=== PATIENT | male | born 1950 | race Caucasian/White ===

== ENCOUNTER 2019-12-28 12:31 | Inpatient (IN) | payer MEDICARE, OTHER ==
[~2019-12-28] VITALS: Ht 182.9 cm; Wt 84.4 kg
--- NOTE | 2019-12-28 12:31 | NUR ---
PT [id number] FROM HOME C/O CHEST PRESSURE, DIZZINESS SINCE YESTERDAY, PT IS AAOX4, NOT IN RESPIRATORY DISTRESS, HOOKED TO EXPERT WITNESS, KEPT RESTED AND COMFORTABLE, WILL CONTINUE TO MONITOR.
--- NOTE | 2019-12-28 12:35 | NUR ---
SEEN AND EXAMINED BY .
--- NOTE | 2019-12-28 12:40 | NUR ---
PT IV LINE ESTABLISHED, BLOOD DRAWN AND SENT TO LAB.
[2019-12-28] MEDS ORDERED: DILTIAZEM HCL 50 MG IV ONE (12:44)
--- NOTE | 2019-12-28 12:54 | NUR ---
TOUR NARRATOR AT BEDSIDE FOR XRAY.
[2019-12-28 12:59] LABS: CALCIUM, SERUM 8.8 mg/dL (8.5-10.1); CARBON DIOXIDE 19 mmol/L (21-32); CHLORIDE 103 mmol/L (98-107); CREATININE 2.2 mg/dL (0.6-1.3); GLUCOSE 147 mg/dL (74-106); POTASSIUM 4.5 mmol/L (3.5-5.1); SODIUM SERUM 134 mmol/L (136-145); UREA NITROGEN, BLOOD 20 mg/dL (7-18)
[2019-12-28] MEDS ORDERED: DILTIAZEM HCL IV 125 MG in IV D5W 100 ML IV ONE (13:00)
[2019-12-28] MEDS ORDERED: DILTIAZEM HCL 25 MG IV IVP ONE (13:00)
[2019-12-28] MEDS ORDERED: LEVO50TA8 PO (13:03)
[2019-12-28] MEDS ORDERED: ASPI-605 PO (13:03)
[2019-12-28 13:07] LABS: BASOPHILS # (AUTO) 0.1 /CMM (0.0-0.2); BASOPHILS % (AUTO) 1.1 % (0.0-2.0); EOSINOPHILS % (AUTO) 2.6 % (0.0-6.0); HEMATOCRIT 45 % (39-51); HEMOGLOBIN 14.8 g/dL (13.5-17.5); LYMPHOCYTES # (AUTO) 0.7 /CMM (0.8-4.8); LYMPHOCYTES % (AUTO) 15.3 % (20.0-44.0); MEAN CORPUSCULAR HGB CONC 33 g/dl (31.0-36.0); MEAN CORPUSCULAR VOLUME 81 fL (80-96); MONOCYTES # (AUTO) 0.6 /CMM (0.1-1.30); MONOCYTES % (AUTO) 13.5 % (2.0-12.0); NEUTROPHILS # (AUTO) 3.2 /CMM (1.8-8.9); NEUTROPHILS % (AUTO) 67.5 % (43.0-81.0); PLATELET COUNT (AUTO) 205 /CMM (150-450); RED BLOOD CELL COUNT(AUTO) 5.52 MIL/uL (4.5-6.0); WHITE BLOOD COUNT (AUTO) 4.7 K/uL (4.3-11.0)
[2019-12-28] MEDS ORDERED: ATOR40TA PO (13:08)
[2019-12-28] MEDS ORDERED: GLIP2.5T3 PO (13:08)
[2019-12-28] MEDS ORDERED: METO25TA3 PO (13:08)
[2019-12-28] MEDS ORDERED: OMEP40CA13 PO (13:08)
[2019-12-28 13:12] LABS: B-TYPE NATRIURETIC PEPTIDE 77 PG/ML (0-125)
--- NOTE | 2019-12-28 13:57 | NUR ---
PT ADMITTED TO [facility] BED 321-1.
[2019-12-28] MEDS ORDERED: ACETAMINOPHEN 325 MG TABLET PO PRN (14:00)
[2019-12-28] MEDS ORDERED: INSULIN REGULAR, HUMAN 100 UNIT/ML 3 ML VIAL SQ PRN (14:00)
[2019-12-28] MEDS ORDERED: MAG HYDROX/AL HYDROX/SIMETH 30 ML UDC PO PRN (14:00)
[2019-12-28] MEDS ORDERED: NITROGLYCERIN 0.4 MG/TAB BOTTLE SL PRN (14:00)
[2019-12-28] MEDS ORDERED: DEXTROSE 50%-WATER 50 ML DISP.SYRIN IV PRN (14:00)
[2019-12-28] MEDS ORDERED: MORPHINE SULFATE INJ 2 MG/ML DISP.SYRIN IV PRN (14:00)
[2019-12-28] MEDS ORDERED: DOCUSATE SODIUM 100 MG CAPSULE PO PRN (14:00)
[2019-12-28] MEDS ORDERED: ASPIRIN 81 MG TAB.CHEW PO ONE (14:00)
[2019-12-28] MEDS ORDERED: ONDANSETRON HCL/PF 4 MG/2 ML VIAL IVP PRN (14:00)
[2019-12-28] MEDS ORDERED: CLOB60CR32 (14:03)
[2019-12-28] MEDS ORDERED: ONDA4TAB8 PO (14:03)
--- NOTE | 2019-12-28 14:15 | NUR ---
REPORT GIVEN TO BJ WANG.
--- NOTE | 2019-12-28 14:18 | NUR ---
SON CELESTINO MCCALLUM LEFT # [phone]
[2019-12-28] MEDS ORDERED: ASPIRIN 81 MG TAB.CHEW ONE (14:33)
--- NOTE | 2019-12-28 15:02 | NUR ---
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 A/O X4, vital signs stable, no fever. Tele reading a-fib, heart rate 120. Fully admitted, skin intact, orders given by Shaneka Bruner NP.
[2019-12-28 16:00] VITALS: BP 116/69
[2019-12-28 16:05] VITALS: BP 116/69
--- NOTE | 2019-12-28 16:30 | NUR ---
MS/RN 2D echo 2D echo at bedside, ejection fracture 65%.
--- NOTE | 2019-12-28 16:45 | NUR ---
MS/RN Blood sugar Blood sugar 196, refused insulin coverage.
[2019-12-28] MEDS: BLOOD SUGAR DIAGNOSTIC 1 EACH STRIP IN SCH ×2 (16:52→21:40)
--- NOTE | 2019-12-28 18:05 | NUR ---
MS/RN End note Patient remains in stable condition, denies any chest pain or pressure. Tele reading a-fib, heart rate 89. Time allowed for all questions and concerns to be addressed. Will endorse to youth services librarian.
--- NOTE | 2019-12-28 19:29 | NUR ---
RECEIVED PATIENT IN BED ALERT AND ORIENTATED. DENIES CHEST PAIN NO NOTED SPB. MADE AWARE THAT HE WILL BE NPO AFTER MIDNIGHT D/T MD DSOUZA WILL SEE HIM AND SPEAK TO HIM WHAT THE PLAN OF CARE WILL BE. CALL LIGHT REVIEWED WITH HIM.
[2019-12-28 20:00] VITALS: BP 112/58
[2019-12-28 20:22] VITALS: BP 112/58
[2019-12-29] VITALS (7 sets, daily range): BP systolic 117–131; BP diastolic 62–68
--- NOTE | 2019-12-29 04:59 | NUR ---
IS IN GOOD SPIRITS. ENJOYS CONVERSATION AND TALKING ABOUT WW [employer], BOOKS HE HAS AND IS READING, BOOK STORES, HIS SON AND DTR IN LAW. BLOOD PRESSURE NORM AND HR RATE STABLE. SR ON THE PLANT WRAPPER HE 72 -87. AMBULATES IN THE ROOM, NOTED NO SOB. TROPS 0.017 1ST AND THE 2ND 0.017 NO CHANGE. NO C/O CHEST DISCOMFORT. KEPT NPO UNTIL SEEN BY MD DSOUZA , THE PT IS AWARE.
[2019-12-29] MEDS: BLOOD SUGAR DIAGNOSTIC 1 EACH STRIP IN SCH ×2 (05:48→11:42)
[2019-12-29] MEDS ORDERED: PANTOPRAZOLE 40 MG TABLET.DR PO SCH (07:30)
[2019-12-29] MEDS ORDERED: LEVOTHYROXINE SODIUM 50 MCG TABLET PO SCH (07:30)
--- NOTE | 2019-12-29 07:40 | NUR ---
RN NOTES RECEIVED PATIENT IN BED RESTING COMFORTABLY IN MODERATE HIGH BACK REST. A/O X4. NO SIGNS OF DISTRESS NOTED AT THIS TIME. SEEN AND EXAMINED BY DR. WEINSTEIN. PER MD PATIENT IS OKAY TO EAT. IV ACCESS ON LAC#18, SL. PATENT AND INTACT. SAFETY MEASURES IN PLACE, BED PLACED IN LOWEST LOCKED POSITION WITH SIDE RAILS UP X2. CALL LIGHT WITHIN EASY REACH. WILL CONTINUE TO MONITOR.
[2019-12-29 08:06] LABS: BASOPHILS # (AUTO) 0.1 /CMM (0.0-0.2); EOSINOPHILS % (AUTO) 4.3 % (0.0-6.0); HEMATOCRIT 42 % (39-51); HEMOGLOBIN 14.1 g/dL (13.5-17.5); LYMPHOCYTES % (AUTO) 18.8 % (20.0-44.0); MEAN CORPUSCULAR HGB CONC 34 g/dl (31.0-36.0); MEAN CORPUSCULAR VOLUME 81 fL (80-96); MONOCYTES # (AUTO) 0.7 /CMM (0.1-1.30); MONOCYTES % (AUTO) 13.4 % (2.0-12.0); NEUTROPHILS # (AUTO) 3.3 /CMM (1.8-8.9); NEUTROPHILS % (AUTO) 62.5 % (43.0-81.0); PLATELET COUNT (AUTO) 214 /CMM (150-450); RED BLOOD CELL COUNT(AUTO) 5.15 MIL/uL (4.5-6.0); WHITE BLOOD COUNT (AUTO) 5.2 K/uL (4.3-11.0)
[2019-12-29 08:44] LABS: CALCIUM, SERUM 7.9 mg/dL (8.5-10.1); CARBON DIOXIDE 23 mmol/L (21-32); CHLORIDE 105 mmol/L (98-107); GLUCOSE 150 mg/dL (74-106); MAGNESIUM 1.8 mg/dL (1.8-2.4); PHOSPHORUS 3.1 mg/dL (2.5-4.9); POTASSIUM 4.1 mmol/L (3.5-5.1); SODIUM SERUM 138 mmol/L (136-145); UREA NITROGEN, BLOOD 23 mg/dL (7-18)
[2019-12-29] MEDS ORDERED: ASPIRIN 81 MG TAB.CHEW PO SCH (09:00)
[2019-12-29] MEDS ORDERED: glipiZIDE XL 2.5 MG TAB.OSM.24 PO SCH (09:00)
[2019-12-29] MEDS ORDERED: ATORVASTATIN 40 MG TABLET PO SCH (09:00)
[2019-12-29] MEDS ORDERED: METOPROLOL SUCCINATE 25 MG TAB.SR.24H PO SCH (09:00)
[2019-12-29] MEDS ORDERED: SIMVASTATIN 20 MG TABLET PO SCH (09:00)
[2019-12-29] MEDS ORDERED: ENOXAPARIN SODIUM 40 MG/0.4 ML DISP.SYRIN SQ SCH (09:00)
[2019-12-29 09:16] LABS: CHOLESTEROL 101 mg/dL (<200); HDL CHOLESTEROL 37 mg/dL (40-60); LDL 51 mg/dL (0-99); THYROID STIMULATING HORMONE 4.665 uIU/mL (0.358-3.74); TRIGLYCERIDES 126 mg/dL (30-150)
[2019-12-29 10:58] LABS: THYROID STIMULATING HORMONE 3.848 uIU/mL (0.358-3.74)
--- NOTE | 2019-12-29 12:15 | NUR ---
RN DISCHARGED NOTES PATIENT DISCHARGED IN STABLE CONDITION. A/O X4. ABLE TO MAKE NEEDS KNOWN. V/S TAKEN, STABLE AND RECORDED. PATIENT'S IV REMOVED AND APPLIED PRESSURE DRESSINGS. SKIN IS INTACT. NAME ARM BAND REMOVED. ALL BELONGINGS CHECKED AND SIGNED. HEALTH TEACHINGS/DISCHARGED INSTRUCTIONS GIVEN TO PATIENT AND VERBALIZED UNDERSTANDING. PATIENT LEFT UNIT AMBULATORY, ASSISTED TO THE LOBBY WITH NO ACUTE SIGNS OF DISTRESS NOTED. PICKED UP BY SON. CHARGE NURSE AWARE OF DISCHARGED.
== END 2019-12-29 12:15 | disposition home or self-care (01) | DRG 308 ==
LOC: ER 12:31 → TELE 14:22 → MED 12-29 08:45
PROVIDERS: ADMIT Registered Nurse; ATTEND Registered Nurse
DX: I48.91 Unspecified atrial fibrillation (principal); N17.0 Acute kidney failure with tubular necrosis; N18.4 Chronic kidney disease, stage 4 (severe); I25.10 Atherosclerotic heart disease of native coronary artery without angina pectoris; I12.9 Hypertensive chronic kidney disease with stage 1 through stage 4 chronic kidney disease, or unspecified chronic kidney disease; E11.22 Type 2 diabetes mellitus with diabetic chronic kidney disease; Z95.5 Presence of coronary angioplasty implant and graft; Z95.1 Presence of aortocoronary bypass graft; Z88.1 Allergy status to other antibiotic agents; Z88.8 Allergy status to other drugs, medicaments and biological substances; Z79.84 Long term (current) use of oral hypoglycemic drugs; Z79.82 Long term (current) use of aspirin; Z79.899 Other long term (current) drug therapy; Z98.890 Other specified postprocedural states; E11.40 Type 2 diabetes mellitus with diabetic neuropathy, unspecified; E03.9 Hypothyroidism, unspecified; E78.5 Hyperlipidemia, unspecified; N40.0 Benign prostatic hyperplasia without lower urinary tract symptoms; Z79.890 Hormone replacement therapy; Z82.3 Family history of stroke; Z82.49 Family history of ischemic heart disease and other diseases of the circulatory system; D64.9 Anemia, unspecified
CPT/HCPCS: 36415; 71045-TC; 80048-TC; 80061-TC; 82962-TC; 83735-TC; 83880; 84100-TC; 84439-TC; 84443-TC; 84484-TC; 85025-TC; 87081-TC; 93307-TC; G0378; J1650; J1815; J3490; J7060